=== PATIENT | female | born 1955 | race African-American/Black ===

== ENCOUNTER 2021-09-12 12:34 | Emergency (ER) | payer SELFPAY ==
[2021-09-12] MEDS ORDERED: HYDROcodone/Acetaminophen 5/325 mg Tablet ONE (13:23)
== END 2021-09-12 14:13 | disposition home or self-care (01) ==
LOC: ERS 12:34
DX: T25.022A Burn of unspecified degree of left foot, initial encounter (principal); T25.012A Burn of unspecified degree of left ankle, initial encounter; T31.0 Burns involving less than 10% of body surface; G47.30 Sleep apnea, unspecified; Z86.73 Personal history of transient ischemic attack (TIA), and cerebral infarction without residual deficits; X11.8XXA Contact with other hot tap-water, initial encounter
CPT/HCPCS: 99283

== ENCOUNTER 2022-02-06 05:37 | Inpatient (IN) | payer MEDICARE ==
[2022-02-06] MEDS ORDERED: Midazolam HCl 2 mg/2 ml Vial ONE (09:41)
[2022-02-06] MEDS ORDERED: Fentanyl 100 MCG/2 ML VIAL ONE ×3 (10:40→16:17)
[2022-02-06] MEDS ORDERED: Dexmedetomidine 200 MCG/2 ML VIAL ONE (11:38)
[2022-02-06] MEDS ORDERED: Nitroglycerin 50 MG/250 ML BOT 0 ML ONE (11:38)
[2022-02-06] MEDS ORDERED: SUGAMMADEX SODIUM 200 MG/2 ML VIAL ONE (12:28)
[2022-02-06] MEDS ORDERED: PHENYLEPHRINE-NS 100 MCG/ML 10 ML SYRINGE ONE (12:28)
[2022-02-06] MEDS ORDERED: Phenylephrine 10 MG/ML VIAL ONE (12:31)
[2022-02-06] MEDS ORDERED: EPINEPHrine 1 MG/ML AMP ONE (13:56)
[2022-02-06] MEDS ORDERED: Heparin 5,000 UNITS/ML VIAL ONE (13:56)
[2022-02-06] MEDS ORDERED: Bupivacaine PF 0.5% 30 ML VIAL ONE (13:56)
[2022-02-06] MEDS ORDERED: Protamine Sulfate 50 MG/5 ML VIAL ONE (13:56)
[2022-02-06] MEDS ORDERED: ceFAZolin 2 GM/DEX 5% 100 ML BAG ONE (14:04)
[2022-02-06] MEDS ORDERED: Dexamethasone 20 MG/5 ML VIAL ONE (14:15)
[2022-02-06] MEDS ORDERED: Rocuronium Bromide 10 MG/ML (10ML VIAL) ONE (14:15)
[2022-02-06] MEDS ORDERED: Ondansetron PF 4 MG/2 ML Vial ONE (14:15)
[2022-02-06] MEDS ORDERED: Lidocaine 1% PF 5 ML VIAL ONE (14:15)
[2022-02-06] MEDS ORDERED: Metoprolol Tartrate 5 MG/5 ML VIAL ONE (14:15)
[2022-02-06] MEDS ORDERED: PROPOFOL 200 MG/20 ML VIAL ONE (14:15)
[2022-02-06] MEDS ORDERED: Promethazine HCl 25 MG/ML VIAL IM PRN ×2 (15:58→16:06)
[2022-02-06] MEDS ORDERED: Ondansetron PF 4 MG/2 ML Vial IVP PRN (15:58)
[2022-02-06] MEDS ORDERED: Phenylephrine 40 MG in Sodium Chloride 0.9% 250 ML 250 ML IVPB PRN (15:58)
[2022-02-06] MEDS ORDERED: Acetaminophen 325 MG TAB PO PRN (15:58)
[2022-02-06] MEDS ORDERED: Fentanyl 100 MCG/2 ML VIAL SLOW IVP PRN ×2 (15:58)
[2022-02-06] MEDS ORDERED: Sodium Chloride 0.9% 1,000 ML IV SCH (15:58)
[2022-02-06] MEDS ORDERED: hydrALAZINE 20 MG/ML VIAL ONE (15:58)
[2022-02-06] MEDS ORDERED: Promethazine HCl 25 MG/ML VIAL IVPB PRN (16:06)
[2022-02-06] MEDS ORDERED: Ondansetron HCl/PF 4 MG/2 ML Vial IVP PRN (16:06)
[2022-02-06] MEDS ORDERED: HYDROmorphone 2 MG/ML VIAL SLOW IVP PRN (16:06)
[2022-02-06] MEDS ORDERED: niCARdipine 25 MG in Sodium Chloride 0.9% 250 ML 240 ML IVPB PRN (16:15)
[2022-02-06] MEDS ORDERED: Promethazine HCl 25 MG/ML VIAL ONE (17:07)
[2022-02-06] MEDS ORDERED: Enoxaparin Sodium 30 MG/0.3 ML SYRINGE SC SCH (18:15)
[2022-02-06 18:24] VITALS: BMI 21.3
[2022-02-06] MEDS ORDERED: Aspirin 325 mg Enteric Coated Tablet PO SCH (18:30)
[2022-02-06] MEDS: traMADol HCl 50 MG TAB PO PRN (20:02)
[2022-02-06] MEDS ORDERED: Lisinopril 10 MG TAB PO SCH (21:00)
[2022-02-06] MEDS: Atorvastatin Calcium 10 MG TAB PO SCH (21:49)
[2022-02-06] MEDS: CEFAZOLIN 2 GM, Admixture Fee 1 EACH in Sodium Chloride 0.9% 100 ML IVPB SCH (21:49)
[2022-02-07] MEDS: niCARdipine 25 MG in Sodium Chloride 0.9% 250 ML 250 ML IVPB PRN ×2 (01:10→05:45)
[2022-02-07] MEDS: traMADol HCl 50 MG TAB PO PRN ×3 (02:11→23:21)
[2022-02-07] MEDS: CEFAZOLIN 2 GM, Admixture Fee 1 EACH in Sodium Chloride 0.9% 100 ML IVPB SCH ×2 (05:42→15:29)
[2022-02-07] MEDS ORDERED: Phenylephrine 40 MG in Sodium Chloride 0.9% 250 ML 250 ML IVPB PRN (08:00)
[2022-02-07] MEDS: Losartan 25 MG TAB PO SCH (09:06)
[2022-02-07] MEDS: Enoxaparin Sodium 30 MG/0.3 ML SYRINGE SC SCH (09:06)
[2022-02-07] MEDS: lamoTRIgine 25 MG TAB PO SCH (09:07)
[2022-02-07] MEDS: Aspirin Chewable 81 MG TAB PO SCH (09:07)
[2022-02-07] MEDS: Polyethylene Glycol 3350 17 GM Packet PO SCH (09:07)
[2022-02-07] MEDS ORDERED: Melatonin 3 MG TAB PO PRN (16:54)
[2022-02-07] MEDS: Atorvastatin Calcium 10 MG TAB PO SCH (20:51)
[2022-02-08] MEDS: traMADol HCl 50 MG TAB PO PRN ×3 (05:53→14:42)
[2022-02-08] MEDS: Enoxaparin Sodium 30 MG/0.3 ML SYRINGE SC SCH (08:55)
[2022-02-08] MEDS: Clopidogrel Bisulfate 75 MG TAB PO SCH (08:56)
[2022-02-08] MEDS: Polyethylene Glycol 3350 17 GM Packet PO SCH (08:56)
[2022-02-08] MEDS: Aspirin Chewable 81 MG TAB PO SCH (08:56)
[2022-02-08] MEDS: lamoTRIgine 25 MG TAB PO SCH (08:57)
[2022-02-08] MEDS: Losartan 25 MG TAB PO SCH (08:57)
[2022-02-08] MEDS ORDERED: Cyclobenzaprine 10 MG TAB PO SCH (18:15)
[2022-02-08] MEDS: Atorvastatin Calcium 10 MG TAB PO SCH (21:13)
[2022-02-09] MEDS: traMADol HCl 50 MG TAB PO PRN ×2 (03:30→12:29)
[2022-02-09] MEDS: Losartan 25 MG TAB PO SCH (09:40)
[2022-02-09] MEDS: Aspirin Chewable 81 MG TAB PO SCH (09:41)
[2022-02-09] MEDS: Clopidogrel Bisulfate 75 MG TAB PO SCH (09:41)
[2022-02-09] MEDS: Enoxaparin Sodium 30 MG/0.3 ML SYRINGE SC SCH (09:41)
[2022-02-09] MEDS: lamoTRIgine 25 MG TAB PO SCH (09:41)
[2022-02-09] MEDS: Polyethylene Glycol 3350 17 GM Packet PO SCH (09:42)
[2022-02-09 12:01] VITALS: BP 130/70; TEMP 98.6
== END 2022-02-09 12:55 | disposition home or self-care (01) | DRG 38 ==
LOC: SURG A 05:37 → EDSTATUS 11:22 → CCU 17:13 → IMCU/EMU 02-07 09:35 → NEURO 02-07 14:14
PROVIDERS: ADMIT Thoracic Surgery (Cardiothoracic Vascular Surgery); ATTEND Thoracic Surgery (Cardiothoracic Vascular Surgery)
PROC: 03CL0ZZ Extirpation of Matter from Left Internal Carotid Artery, Open Approach (ICD-10-PCS; principal; 2022-02-06)
PROC: 03UL0KZ Supplement Left Internal Carotid Artery with Nonautologous Tissue Substitute, Open Approach (ICD-10-PCS; 2022-02-06)
DX: I65.22 Occlusion and stenosis of left carotid artery (principal); T81.718A Complication of other artery following a procedure, not elsewhere classified, initial encounter; I10 Essential (primary) hypertension; K21.9 Gastro-esophageal reflux disease without esophagitis; E78.5 Hyperlipidemia, unspecified; Y83.8 Other surgical procedures as the cause of abnormal reaction of the patient, or of later complication, without mention of misadventure at the time of the procedure; Z79.899 Other long term (current) drug therapy; Z88.1 Allergy status to other antibiotic agents; Z88.8 Allergy status to other drugs, medicaments and biological substances; Z90.710 Acquired absence of both cervix and uterus
CPT/HCPCS: 70450; C1768; J0171; J0360; J0690; J1100; J1642; J1644; J1650; J2250; J2370; J2405; J2550; J2704; J2720; J3010; J3490; J7050; S0020

== ENCOUNTER 2022-06-26 22:20 | Emergency (ER) | payer OTHER ==
[2022-06-26] MEDS ORDERED: Ketorolac Tromethamine 30 MG/ML VIAL ONE (23:38)
[2022-06-27] MEDS ORDERED: Cyclobenzaprine 10 MG TAB ONE (01:12)
== END 2022-06-27 01:33 | disposition home or self-care (01) ==
LOC: ERS 22:20
DX: S29.011A Strain of muscle and tendon of front wall of thorax, initial encounter (principal); R51.9 Headache, unspecified; K21.9 Gastro-esophageal reflux disease without esophagitis; E78.00 Pure hypercholesterolemia, unspecified; Z86.73 Personal history of transient ischemic attack (TIA), and cerebral infarction without residual deficits; Z79.82 Long term (current) use of aspirin; Z79.899 Other long term (current) drug therapy; V43.52XA Car driver injured in collision with other type car in traffic accident, initial encounter
CPT/HCPCS: 70450; 96372; J1885